=== PATIENT | male | born 1980 | race Hispanic/Latino ===

== ENCOUNTER 2022-06-22 20:47 | Emergency (ER) | payer SELFPAY ==
--- NOTE | ~2022-06-22 | CT_ITS ---
Noncontrast CT scan of the left femur CLINICAL HISTORY: Pain TECHNIQUE: Following intravenous administration of 100 cc of Omnipaque 350, axial imaging of the left femur was performed. Sagittal and coronal reformatted images were constructed. Dose reduction techni que was used on this scan by utilizing automated exposure control and iterative reconstruction techni que. FINDINGS: No fracture or dislocation seen. No periosteal reaction seen. Visualized joint spaces at th e hip and knee are unremarkable. No joint effusion identified. Visualized musculature unremarkable. Subcutaneous soft tissues unremarkable. No soft tissue mass or f luid collection identified. IMPRESSION: Unremarkable exam. Reviewed, dictated and finalized at location [facility] IMPRESSION: Unremarkable exam.
[2022-06-22 20:50] VITALS: BP 198/99; PULSE 98; RESP 24; TEMP 36; O2SAT 98
--- NOTE | 2022-06-22 20:56 | ECG_ITS ---
Measurements Intervals [place] Rate: 95 P: 37 NM: 159 QRS: 29 QRSD: 88 T: 69 QT: 343 QTc: 433 Interpretive Statements SINUS RHYTHM NONSPECIFIC T-WAVE ABNORMALITY NO PREVIOUS ECG AVAILABLE FOR COMPARISON Electronically Signed On 06-23-2022 14:47:26 [employer] by Dolly Alonso M.D.
[2022-06-22 21:04] LABS: Glucose Point of Care 320 mg/dl (65-105)
[2022-06-22 21:08] LABS: Basophils Absolute Auto 0.1 K/mm3 (0.0-0.1); Basophils Percent Auto 0.7 % (0.2-1.2); Eosinophils Absolute Auto 0.1 K/mm3 (0-0.3); Eosinophils Percent Auto 1.1 % (0-4.4); Hematocrit 41.6 % (42.0-52.0); Hemoglobin 14.7 g/dL (14.0-18.0); Immature Granulocyte Absolute 0.03 K/mm3 (0.00-0.031); Immature Granulocyte Percent A 0.4 % (0-0.5); Lymphocytes Absolute Auto 3.13 K/mm3 (0.9-3.2); Lymphocytes Percent Auto 42.5 % (18.3-44.2); Mean Corpuscular HGB Conc 35.3 g/dl (32-36); Mean Corpuscular Hemoglobin 32.2 pg (26-34); Mean Platelet Volume 9.7 fl (7.4-10.4); Monocytes Absolute Auto 0.8 K/mm3 (0.1-0.6); Monocytes Percent Auto 10.6 % (2.6-8.5); Neutrophils Absolute Auto 3.3 K/mm3 (1.3-6.7); Neutrophils Percent Auto 44.7 % (45.5-73.1); Platelet Count Result 292 k/mm3 (150-375); Red Blood Count 4.57 M/mm3 (4.6-6.20); Red Cell Distribution Width 11.8 % (11.5-14.5); White Blood Count 7.4 K/mm3 (4.5-10.0)
[2022-06-22 21:18] LABS: Alanine Aminotransferase 143 U/L (6-50); Albumin Level 4.6 g/dL (3.5-5.1); Alkaline Phosphatase 93 U/L (38-126); Anion Gap 9 mmol/L (8-16); Aspartate Amino Transferase 94 U/L (17-59); Bilirubin,Total 0.6 mg/dL (0.2-1.3); Blood Urea Nitrogen 12 mg/dL (9-20); Calcium 9.2 mg/dL (8.4-10.2); Carbon Dioxide 28 mmol/L (22-30); Chloride 92 mmol/L (98-107); Estimated CRCL calculation 134 ml/min; Estimated Glomerular Filt Rate > 60; Glucose 327 mg/dL (65-110); Phosphorus 3.5 mg/dL (2.5-4.5); Potassium 3.9 mmol/L (3.4-5.0); Sodium 129 mmol/L (137-145)
[2022-06-22 21:37] LABS: Beta-Hydroxybutyrate/Acetoacetate 0.92 mmol/L (0.02-0.27)
[2022-06-22 22:16] VITALS: BP 177/107; PULSE 89; RESP 20; O2SAT 98
[2022-06-22 22:20] LABS: Glucose Point of Care 288 mg/dl (65-105)
[2022-06-23] MEDS: LACTATED RINGERS 1,000 ML 999 ML IV CONT ×2 (00:19→03:19)
[2022-06-23] MEDS: amLODIPine BESYLATE 5 MG TABLET 10 MG PO (01:37)
[2022-06-23 01:55] LABS: Add Urine Microscopic? YES; Appearance Urine Clear (Clear); Bilirubin Urine Negative (Negative); Blood Urine Trace-Intact (Negative); Color Urine Light Yellow (Yellow); Glucose Urine UA 3+ mg/dL (Negative); Ketones Urine 2+ mg/dL (Negative); Leukocyte Esterase Ur Negative LEU/UL (Negative); Nitrate Urine Negative (Negative); Protein Urine 1+ mg/dL (Negative); Specific Grav Ur <= 1.005 (1.001-1.035); Urobilinogen Urine 0.2 mg/dL (<2.0); pH Urine 7.5 (5.0-9.0)
[2022-06-23 02:02] LABS: WBC Urine 0-3 /hpf
--- NOTE | 2022-06-23 04:10 | ED.RECABL ---
HPI - Recheck/Abnormal Lab/Rx General Chief Complaint: Recheck/Abnormal Lab/Rx Stated Complaint: elevated BP and BS Time Seen by Provider: 06/23/22 00:06 History of Present Illness HPI narrative: 41-year-old male with history of diabetes hypertension, previously on metformin but has not been able to take it here because he does not have a doctor in the [facility], presenting because he was little bit anxious about his blood pressure and blood sugar not being under control. Also endorsed some mild dizziness for last few days. He also has been having pain in his left thigh for the past month, has seen some doctors for this and chiropractors but not improved after antibiotics or painkillers. Related Data Allergies Allergy/AdvReac Type Severity Reaction Status Date / Time No Known Allergies Allergy Verified 06/22/22 20:54 Review of Systems Review of Systems: CONST: No fever. HEENT: No sore throat C/V: No chest pain RESP: No cough GI: No nausea vomiting : No dysuria. M/S: Left leg pain SKIN: No rash. NEURO: Some dizziness PSYCH: [No depression] [facility] Past Medical History Medical History (Updated 06/23/22 @ 04:52 by Penelope Thakkar MD) Diabetes Social History Social History Smoking status: Never smoker Alcohol intake: current Exam Narrative: EXAMINATION OF ORGAN SYSTEMS/BODY AREAS: Constitutional: Vital signs per nursing GENERAL:[No acute distress, non-toxic appearing.] HEAD: Normal with no signs of head trauma. EYES: EOMI, conjunctiva normal ENT: Hearing grossly intact LUNGS: Nonlabored breathing. HEART: [Regular rate and rhythm] ABD: [Soft], [nontender to palpation] EXT: Some tenderness palpation and 5cm x 5 cm area of induration to the medial thigh on left SKIN: [No rashes or lesions.] NEURO: [Alert and oriented x 3. CN II to XII intact. No gross focal sensory or strength deficits.] PSYCH: Normal affect Course Vital Signs Vital signs: Vital Signs Temperature 96.8 F L 06/22/22 20:50 Pulse Rate 98 06/22/22 20:50 Respiratory Rate 24 H 06/22/22 20:50 Blood Pressure 198/99 H 06/22/22 20:50 Pulse Oximetry 98 06/22/22 20:50 Oxygen Delivery Room Air 12/28/22 20:50 Temperature 96.8 F L 06/22/22 20:50 Pulse Rate 89 06/22/22 22:16 Respiratory Rate 20 06/22/22 22:16 Blood Pressure 177/107 H 06/22/22 22:16 Pulse Oximetry 98 06/22/22 22:16 Oxygen Delivery Room Air 06/22/22 20:50 MDM - Recheck/Abnormal Lab/Rx MDM Narrative Medical decision making narrative: 41-year-old male presenting with hyper pressure, hyperglycemia, left leg pain, and some dizziness. He has been out of his medications and has not been able to get a primary care doctor while he has been in the [facility]. Exam shows normal neurologic and cardiopulmonary exam, he does have a large area of tenderness and induration to his left thigh, differential includes DVT, hematoma, muscle spasm. Labs notable for hyperglycemia with some ketones but no signs of acidosis, no anion gap. He is started on IV fluids, and I will put him back on his metformin, as well as given him amlodipine, until he can see a primary care doctor. He and his are counseled on coming back during the daytime for an DVT ultrasound to rule out DVT. I did obtain a CT scan here overnight and did not note any obvious abnormality. Return precautions provided and stable for discharge at this time. Lab Data 06/22/22 21:00 06/22/22 21:00 Labs: Lab Results 06/22/22 06/22/22 06/22/22 Range/Units 21:00 21:00 21:00 WBC 7.4 (4.5-10.0) K/mm3 RBC 4.57 L (4.6-6.20) M/mm3 Hgb 14.7 (14.0-18.0) g/dL Hct 41.6 L (42.0-52.0) % MCV 91.0 (80-100) fl MCH 32.2 (26-34) pg MCHC 35.3 (32-36) g/dl RDW 11.8 (11.5-14.5) % Plt Count 292 (150-375) k/mm3 MPV 9.7 (7.4-10.4) fl Immature Gran % (Auto) 0.4 (0-0.5) % Neut % (Auto) 44.7 L (45.5-73.1) % Lymph
[2022-06-23 06:05] LABS: Glucose Point of Care 276 mg/dl (65-105)
== END 2022-06-23 05:22 | disposition home or self-care (01) ==
PROVIDERS: Emergency Provider Emergency Medicine
DX: E11.65 Type 2 diabetes mellitus with hyperglycemia (principal); I10 Essential (primary) hypertension; M79.652 Pain in left thigh; T38.3X6A Underdosing of insulin and oral hypoglycemic [antidiabetic] drugs, initial encounter; Z91.138 Patient's unintentional underdosing of medication regimen for other reason
CPT/HCPCS: 36415; 73701; 80053; 81001; 82010; 82948; 83735; 84100; 85025; 93005; 96361; 96374; 99284; A9270; J0131; J7120; Q9967